=== PATIENT | female | born 1975 | race Caucasian/White ===

== ENCOUNTER 2021-05-11 15:27 | Emergency (ER) | payer OTHER ==
[~2021-05-11] VITALS: Ht 160 cm; Wt 147.9 kg
[2021-05-11 15:27] VITALS: BP 135/93
[~2021-05-11 15:27] MED LIST: CLAR5CHW OR; DIOV160T5 OR; FURO20TA2 OR; LEXA1TAB OR; MACR50CA OR; METF500T4 OR
== END 2021-05-11 15:53 | disposition left against medical advice (07) ==
LOC: M ED 15:27
DX: Z53.21 Procedure and treatment not carried out due to patient leaving prior to being seen by health care provider (principal)